=== PATIENT | male | born 1955 | race Caucasian/White ===

== ENCOUNTER 2019-01-16 09:13 | Day surgery (SDC) | payer MEDICARE, OTHER ==
[~2019-01-16 09:13] MED LIST: ACETAMINOPHEN 1,000 MG/100 ML BTL IVPB ONE; CEFAZOLIN 2 Gram 2 GM/50 ML BAG IVPB ONE
[2019-01-16] MEDS ORDERED: LIDOCAINE 2% MDV (20MG/ML) 20ML VIAL IV ONE (09:14)
[2019-01-16] MEDS ORDERED: DEXAMETHASONE 4 MG/ML 1ML VIAL IVP ONE (09:14)
[2019-01-16] MEDS ORDERED: FENTANYL PF 100MCG/2ML VIAL IV ONE (09:14)
[2019-01-16] MEDS ORDERED: MIDAZOLAM HCL 2MG/2ML VIAL IV ONE (09:14)
[2019-01-16] MEDS ORDERED: KETOROLAC 30 MG/ML VIAL IVP ONE (09:14)
[2019-01-16] MEDS ORDERED: ONDANSETRON HCL IV 4 MG/2 ML VIAL IVP ONE (09:14)
[2019-01-16] MEDS ORDERED: PROPOFOL 10 MG/ML VIAL IV ONE (09:14)
[2019-01-16] MEDS ORDERED: RINGERS SOLUTION,LACTATED 1,000 ML IV ONE (09:41)
[2019-01-16] MEDS ORDERED: BUPIVACAINE 0.5% W/EPI MPF 30 ML VIAL IU ONE (12:07)
[2019-01-16] MEDS ORDERED: MORPHINE SULFATE (PACU ONLY) 4 MG/ML VIAL IU ONE (12:09)
[2019-01-16] MEDS ORDERED: METHYLPREDNISOLONE 40MG/VIAL IU ONE (12:09)
--- NOTE | 2019-01-16 15:50 | Operative Note ---
DATE OF SURGERY: 01/16/2019 PREOPERATIVE DIAGNOSIS: Internal derangement of the left knee. POSTOPERATIVE DIAGNOSES: 1. Grade 3 chondromalacia of patella. 2. Grade 3 chondromalacia of notch. 3. Limited synovitis of the pouch. 4. Complex radial split tear involving the posterior horn of the medial meniscus. OPERATION: 1. Left knee arthroscopy with partial medial meniscectomy. 2. Left knee arthroscopy with intraarticular debridement and partial synovectomy. STAFF SURGEON: Grzegorz Neville MD ANESTHESIA: General. PREPARATION: Chloraprep. INDIVIDUAL CONSIDERATIONS: None. PROCEDURE: The patient was taken to the operating room and placed supine on the operating room table. The patient had a successful induction with general anesthetic. The left lower extremity was prepped and draped in the usual fashion. The patient had a superolateral inflow cannula placed. Skin was infiltrated with 0.5% Marcaine with epinephrine prior. A blood-tinged effusion was drained. The knee was inflated with normal saline. An inferomedial and an inferolateral portal were made in a similar fashion. The arthroscope was introduced through the inferolateral portal up into the pouch. Patellofemoral joint showed small grade 3 changes. There was some synovitis in the pouch which was debrided. Some of the small grade 3 changes in the patellofemoral compartment were also debrided with a shaver. Medially, he had a complex split tear involving the posterior horn of the medial meniscus, which was radial split. I basically debrided it all out with a basket forceps and a shaver to a stable rim but basically removing most of it. The articular cartilage was normal. In the notch, the cruciates were normal and lateral compartment structures were normal. The knee was then irrigated out with saline to remove loose floating debris. Portals were closed with isra, and 15 mL of 0.5% Marcaine with epinephrine along with 4 mg of morphine and 40 mg of Depo-Medrol were injected into the knee. A sterile bulky compressive dressing was applied. The patient tolerated procedure well. Needle and sponge counts were correct. Estimated blood loss was minimal. He was taken back to recovery in good condition. There were no complications. [facility]
== END 2019-01-16 13:20 | disposition home or self-care (01) ==
LOC: SUR 09:13
PROVIDERS: ATTEND Orthopaedic Surgery
DX: S83.232A Complex tear of medial meniscus, current injury, left knee, initial encounter (principal); M65.862 Other synovitis and tenosynovitis, left lower leg; M94.262 Chondromalacia, left knee; M19.90 Unspecified osteoarthritis, unspecified site; G47.33 Obstructive sleep apnea (adult) (pediatric); K21.9 Gastro-esophageal reflux disease without esophagitis
CPT/HCPCS: J1030; J1885; J2270; J2405; J7120